=== PATIENT | female | born 1975 | race Caucasian/White ===

== ENCOUNTER → 2017-05-02 | Outpatient (CLI) | payer BC ==
--- NOTE | 2017-05-05 11:18 | CT ---
HISTORY: Follow up sarcoma Study: CT chest without con Comparison: Outside CT chest November 22, 2016 (report only) Technique: Axial non contrast images with coronal and sagittal reformats. Dose reduction procedures were used with MA/kv adjusted for body size. The examination is limited due to the lack of intraveno us contrast. Findings: Examination of the mediastinum demonstrated no definite evidence for mediastinal masses, enlarged ly mphadenopathy, or enlarged hilar adenopathy. No pleural effusions are identified. No chest wall or a xillary abnormality is identified. Those portions of the upper abdominal organs visualized were with in normal limits the limitations of an unenhanced examination. Bilateral breast implants are present . Postsurgical changes are present in the left axilla. Examination of the lung rodriguez demonstrated a 7.8 millimeter left upper lobe ground-glass subpleural nodule unchanged from the report of the prio r examination. No new nodules are identified. No alveolar infiltrates, areas of consolidation, perib ronchial thickening, or bronchiectasis is identified. IMPRESSION: Stable 7.8 millimeter ground-glass left upper lobe pulmonary nodule No new nodules identified Reported By:
== END ==
LOC: RAD 13:47
PROVIDERS: ATTEND Physician Assistant Medical
DX: C49.22 Malignant neoplasm of connective and soft tissue of left lower limb, including hip (principal)
CPT/HCPCS: 71250

== ENCOUNTER → 2017-05-19 | Outpatient (CLI) | payer BC ==
--- NOTE | 2017-05-19 10:43 | MRI ---
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 Study: MRI left shoulder with and without contrast. Technique: Multiplanar/multi sequence imaging of the left shoulder with contrast. Comparison: CT chest dated May 02, 2017. Findings: Type 1 lateral down sloping acromion causing impingement on the supraspinatus tendon. The tendon is otherwise intact. The infra spinatus and teres minor tendons are intact. Mild osteoarthritis of the left acromioclavicular joint with associated small subacromial spurring. No significant subacromial/ subdeltoid fluid. The subscapularis tendon and long head of the biceps tendon appear intact. No obvi ous labral tears. The articular cartilage is intact. The visualized bone marrow demonstrates normal signal characteristics. Postsurgical changes of the left axilla without obvious recurrent mass or pa thologic lymphadenopathy. No areas of abnormal contrast enhancement. The partially visualized left b reast implant appears intact. IMPRESSION: 1. No evidence of recurrent or local regional disease. 2. Other chronic findings as above. Reported By:
== END ==
LOC: RAD 08:42
DX: C49.22 Malignant neoplasm of connective and soft tissue of left lower limb, including hip (principal)
CPT/HCPCS: 73222